=== PATIENT | male | born 1960 | race Caucasian/White ===

== ENCOUNTER 2016-10-25 05:21 | Emergency (ER) | payer OTHER ==
[~2016-10-25] VITALS: Ht 188 cm; Wt 103.9 kg
[2016-10-25] MEDS ORDERED: GABAPENTIN300 M2 PO (05:35)
[2016-10-25] MEDS ORDERED: JANUMET 50-1,01 EACH PO (05:36)
[2016-10-25] MEDS ORDERED: MELOXICAM7.5 M1 PO (05:36)
[2016-10-25] MEDS ORDERED: HYDROCODON-ACE1 EAC2 PO (05:37)
[2016-10-25 06:07] LABS: ABSOLUTE BASOPHIL COUNT 0 /CUMM (0.0-0.2); ABSOLUTE EOSINOPHIL COUNT 0 /CUMM (0.0-0.7); ABSOLUTE GRANULOCYTE CT 3.3 /CUMM (1.4-6.5); ABSOLUTE LYMPH COUNT 1.1 /CUMM (1.2-3.4); ABSOLUTE MONOCYTE COUNT 0.7 /CUMM (0.10-0.60); BASOPHIL % 0.3 % (0.0-2.0); EOSINOPHIL % 0.5 % (0-5); GRANULOCYTE % 64.7 % (42.2-75.2); HEMATOCRIT 46.7 % (42-52); MEAN CORPUSCULAR HGB 29.7 PG (27.0-31.0); MEAN CORPUSCULAR HGB CONC 33.6 G/DL (33.0-37.0); MEAN CORPUSCULAR VOLUME 88.5 FL (80.0-94.0); MEAN PLATELET VOLUME 7.5 FL (7.4-10.4); PLATELET COUNT 118 /CUMM (130-400); RBC DISTRIBUTION WIDTH 13.5 % (11.5-14.5); RED BLOOD CELL CT 5.28 /CUMM (4.70-6.10); WHITE BLOOD CELL COUNT 5.1 /CUMM (4.8-10.8)
--- NOTE | 2016-10-25 06:20 | RADIOLOGY REPORT ---
EXAMINATION: XR CHEST CLINICAL INFORMATION: Productive cough. Chest pain. COMPARISON: None TECHNIQUE: 2 views of the chest were obtained. FINDINGS: The lungs are well expanded. There is no focal consolidation, edema, or effusion. No pneumothorax. The cardiomediastinal silhouette is within normal limits. No acute osseous abnormality. IMPRESSION: No acute pulmonary findings.
--- NOTE | 2016-10-25 06:24 | ED INFLUENZA/URI COMPLAINT ---
See Addendum History of Present Illness General Chief Complaint: General Adult Stated Complaint: BAD COUGH/WHOLE BODY PAIN Source: patient, family, old records Exam Limitations: no limitations Vital Signs & Intake/Output Vital Signs & Intake/Output Vital Signs Date Time Temp Pulse Resp B/P Pulse O2 O2 Flow FiO2 Ox Delivery Rate 10/25 0557 98.6 85 18 138/75 96 Room Air 10/25 0531 Room Air 10/25 0531 98.4 106 18 160/90 97 Room Air Allergies Coded Allergies: No Known Allergies (10/25/16) Reconcile Medications Gabapentin 300 MG CAPSULE 1 CAP PO TID NEUROPATHY (Reported) Hydrocodone/Acetaminophen (Hydrocodon-Acetaminophen 5-325) 5 MG-325 MG TABLET 1 TAB PO BIDP PRN BACK PAIN (Reported) Meloxicam 7.5 MG TABLET 1 TAB PO TID ARTHRITIS (Reported) Sitagliptin Phos/Metformin HCl (Janumet 50-1,000 MG Tablet) 50 MG-1,000 MG TABLET 1 TAB PO BID DIABETES (Reported) Triage Note: PT TO TRIAGE FROM HOME C/O COUGH X4 DAYS, BODY ACHES ALL OVER. Triage Nurses Notes Reviewed? yes Onset: Last week Duration: day(s):, constant, continues in ED, getting worse Timing: recent history Severity: severe Prior Episodes/Possible Cause: illness exposure No Modifying Factors: none Associated Symptoms: chest pain, cough, fever/chills, muscle aches HPI: 4 days prior to admission patient complains of extreme fatigue. 2 days prior to admission developed productive cough of green sputum anorexia increased sleeping nausea vomiting times one. Presents with continued symptoms and sharp central chest pain with cough and generalized body aches. He denies fever diarrhea abdominal pain headache dysuria rash bleeding. (LEEANN AUSTIN MD) Past History Travel History Traveled to [place] past 21 day No Medical History Any Pertinent Medical History? see below for history Neurological: NEUROPATHY Musculoskeletal: disk herniation Endocrine: diabetes Surgical History Surgical History: non-contributory Psychosocial History What is your primary language [place]ish Tobacco Use: Never used ETOH Use: denies use Family History Hx Contributory? No (LEEANN AUSTIN MD) Review of Systems Review of Systems Constitutional: Reports: see HPI, malaise, weakness. EENTM: Reports: no symptoms. Respiratory: Reports: see HPI, cough, sputum production. Cardiovascular: Reports: see HPI, chest pain. GI: Reports: no symptoms. Genitourinary: Reports: no symptoms. Musculoskeletal: Reports: no symptoms. Skin: Reports: no symptoms. Neurological/Psychological: Reports: no symptoms. Hematologic/Endocrine: Reports: no symptoms. Immunologic/Allergic: Reports: no symptoms. All Other Systems: Reviewed and Negative (LEEANN AUSTIN MD) Physical Exam Physical Exam General Appearance: well developed/nourished, alert, awake, anxious, moderate distress Head: atraumatic, normal appearance Eyes: Bilateral: normal appearance, PERRL, EOMI. Ears, Nose, Throat: normal ENT inspection, dry mucous membranes Neck: normal inspection, supple, full range of motion, trachea midline, no midline tenderness Respiratory: normal breath sounds, chest non-tender, no respiratory distress, quiet respiration, lungs clear Cardiovascular: regular rate/rhythm, normal peripheral pulses, norml femoral pulses equa Peripheral Pulses: 4+ carotid (R), 4+ carotid (L) Gastrointestinal: normal bowel sounds, soft, non-tender, no organomegaly Back: normal inspection, normal range of motion, no vertebral tenderness Extremities: normal inspection, normal capillary refill, normal range of motion, no edema Neurologic/Psych: no motor/sensory deficits, awake, alert, oriented x 3, normal gait, normal mood/affect, 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 Skin: intact, normal color, warm/dry Lymphatic: no anterior cervical willie Core Measures Severe Sepsis Present: No Septic Shock Present: No (LEEANN AUSTIN MD) Progress Differential Diagnosis: influenza, pneumonia Plan of Care: Orders Procedure Date/time Status TROPONIN LEVEL 10/25 1000 Active EKG 10/25 1000 Active Add-on Test (ER Only) 10/25 0654 Active RAPID VIRAL INFLUENZA A 10/25 0541 Complete TROPONIN LEVEL 10/25 0541 Complete MONOSPOT TEST 10/25 0541 Active LIPASE 10/25 0541 Complete COMPREHENSIVE METABOLIC PANEL 10/25 0541 Complete CBC WITHOUT DIFFERENTIAL 10/25 0541 Complete ACETONE 10/25 0541 Complete EKG 10/25 0541 Active Current Medications Sig/Drake Start time Last Medication Dose Stop Time Status Admin Sodium Chloride 1,000 ML BOLUS ONE 10/25 0715 UNVr (Normal Saline 0.9%) 10/25 0814 Laboratory Tests 10/25/16 0558: Anion Gap 11, Estimated GFR > 60, BUN/Creatinine Ratio 25.7 H, Glucose 395 H, Calcium 9.1, Total Bilirubin 0.6, AST 20, ALT 42, Alkaline Phosphatase 64, Troponin I < 0.01, Total Protein 6.8, Albumin 4.1, Globulin 2.7, Albumin/ Globulin Ratio 1.5, Lipase 56, CBC w Diff NO MAN DIFF REQ, RBC 5.28, MCV 88.5, MCH 29.7, RDW 13.5, MPV 7.5, Gran % 64.7, Lymphocytes % 21.7, Monocytes % 12.8 H, Eosinophils % 0.5, Basophils % 0.3, Absolute Granulocytes 3.3, Absolute Lymphocytes 1.1 L, Absolute Monocytes 0.7 H, Absolute Eosinophils 0, Absolute Basophils 0, PUBS MCHC 33.6, Acetone Level NEGATIVE 10/25/16 0541: Infectious [place] Titer Pending Microbiology 10/25 556 NASOPHARYN: Influenza Virus A & B Rapid Smear - COMP Diagnostic Imaging: Viewed by Me: Radiology Read. Discussed w/RAD: Radiology Read. CXR Impression: no acute abnormality, no infiltrates, normal size heart, normal mediastinum Initial ED EKG: normal axis, normal intervals, normal p-waves, normal QRS complex, normal sinus rhythm, nonspecific ST T wave chg, inverted t waves V1-4 Hand-Off Endorsed To: JENNY JOHNSON DO Endorsed Time: 0700 Pending: EKG, labs (LEEANN AUSTIN MD) Departure Departure Disposition: STILL A PATIENT Condition: Stable Clinical Impression Primary Impression: Acute viral syndrome Secondary Impressions: Chest pain in adult, Hyperglycemia without ketosis, Nonspecific ST-T wave electrocardiographic changes Referrals: UNKNOWN (PCP/Family) Departure Forms: Customer Survey General Discharge Information (LEEANN AUSTIN MD) Departure Comments 10/25/16 7:20 AM The patient was signed out to me by Dr. Austin. Nonspecific T-wave inversions. Myalgia, cough and vomiting. Troponin negative. For repeat troponin and EKG at 10 AM. (JENNY JOHNSON DO)
[2016-10-25] MEDS ORDERED: VIBRAMYCIN100 MG PO (11:00)
== END 2016-10-25 11:40 ==
LOC: ERH 05:21
PROVIDERS: Emergency Medicine
DX: B34.9 Viral infection, unspecified (principal); R07.9 Chest pain, unspecified; E11.65 Type 2 diabetes mellitus with hyperglycemia; G62.9 Polyneuropathy, unspecified; R94.31 Abnormal electrocardiogram [ECG] [EKG]
CPT/HCPCS: 87804; 87804-59; 93005; 93010; 96361; 96374; 96375; J0131; J1815; J1885; J2405